=== PATIENT | female | born 1995 | race Caucasian/White ===

== ENCOUNTER 2018-01-10 15:41 | Emergency (ER) | payer OTHER ==
[~2018-01-10] VITALS: Ht 165.1 cm; Wt 45.0 kg
[~2018-01-10 15:41] MED LIST: AMOXICILLIN500 MG PO; AMOXICILLIN875 MG PO; AUGMENTIN XR PO; AUGMENTIN875TAB PO; BACTRIM1 TAB OR; BICILLIN L1.2 MU/SYR IM; CIPROFLOXACN500 MG PO; CLARITIN10 M1 PO; CLARITIN10 M2 OR; DOXY-CAPS100 MG PO; DOXYCYCL HYC100 MG PO; HYDROCO/APAP1 TA9 OR; IBUPROFEN PO; IBUPROFEN200 M1 OR; IMPLANON; LIDODERM5 % TOP; LORTAB 10 PO; LORTAB 7.57.5 MG PO; LORTAB5 PO; LUPRON2 WEE1; MEDROXYPR AC10 M1 OR; MIRALAX3350 N1 PO; MOTRIN600 MG/TAB PO; MULTIVITAMIN OR; NEXPLANON68 MG SC; NO MEDS; OXYCO/APAP1 TA5; PERCOCET 5/325M1 TAB PO; PHENERGAN25 MG RE; PHENERGAN25 MG/TAB PO; PRENATAL DHA200 MG PO; PRENATAL PO; PRENATAL1 TA1 PO; PROGESTERONE100 MG OR; SPRINTEC 2828 DAY PO; STOOL SOFTEN1 TAB OR; TRAMADOL HCL50 MG; TRIMOX500 MG PO; TUBERSOL5 MG/0.1 M ID; ULTRAM50 M1 PO; ZOFRAN ODT4 MG OR; ZOFRAN ODT4 MG PO; ZOFRAN ODT8 MG PO; ZOFRAN ODT8 MG SL; ZOFRAN4 MG/TAB PO; ZOLOFT50 MG PO; [UNRECOGNIZED DRUG - CODE] OR
[2018-01-10 16:18] LABS: INFLUENZA A NONE DETECTED (NONE DETECT); INFLUENZA B NONE DETECTED (NONE DETECT)
[2018-01-10] MEDS ORDERED: AMOXICILLIN500 M2 PO (17:24)
[2018-01-10 17:25] VITALS: BP 114/77
== END 2018-01-10 17:25 | disposition home or self-care (01) | DRG 153 ==
LOC: ED 15:41
PROVIDERS: Family Medicine
DX: J02.9 Acute pharyngitis, unspecified (principal); R05 Cough; R09.89 Other specified symptoms and signs involving the circulatory and respiratory systems; R50.9 Fever, unspecified; R11.2 Nausea with vomiting, unspecified

== ENCOUNTER 2020-12-01 11:21 | Emergency (ER) | payer OTHER ==
[~2020-12-01] VITALS: Ht 165.1 cm; Wt 54.0 kg
[~2020-12-01 11:21] MED LIST changes: +AMOXICILLIN500 M2 PO
[2020-12-01] MEDS ORDERED: CALNA PO (12:06)
[2020-12-01 12:23] LABS: HEMATOCRIT 36.5 % (37.0-47.0); HEMOGLOBIN 11.8 g/dl (12.0-16.0); IMMATURE GRANULOCYTES 0.3 % (0.0-5.0); MEAN CELL VOLUME 86.5 fL CALC (80.0-100.0); MEAN CORPUSCULAR HGB CONC 32.3 g/dL CAL (32.0-36.0); NEUT# 6.75 thou/uL (2.00-7.15); RED BLOOD COUNT 4.22 mill/uL (4.20-5.60)
[2020-12-01 12:37] LABS: ALBUMIN 3.9 g/dL (3.2-5.0); ALKALINE PHOSPHATASE 46 u/l (38-126); ANION GAP 12 (6-22 (CALC)); BILIRUBIN, TOTAL 0.5 mg/dL (0.0-1.4); BUN 8 mg/dL (7-17); BUN/CREATININE RATIO 18 (12-20 (CALC)); CARBON DIOXIDE 23 mmol/l (22-30); CHLORIDE 102 mmol/l (95-108); CREATININE 0.5 mg/dL (0.5-1.0); GFR > 60 ML/MIN (>=60 (CALC)); GFR FOR AFR.AMER. > 60 ML/MIN (>=60 (CALC)); POTASSIUM 4.1 mmol/l (3.5-5.1); SGOT/AST 15 u/l (14-36); SODIUM 133 mmol/l (137-146); TOTAL PROTEIN 6.5 g/dL (6.3-8.2)
[2020-12-01 13:05] LABS: URINE BILIRUBIN - DIPSTICK NEGATIVE (NEGATIVE); URINE BLOOD DIPSTICK NEGATIVE (NEGATIVE); URINE COLOR YELLOW; URINE GLUCOSE - DIPSTICK NEGATIVE (NEGATIVE); URINE KETONE 40 mg/dL (NEGATIVE); URINE LEUK ESTERASE NEGATIVE (NEGATIVE); URINE NITRITE - DIPSTICK NEGATIVE (Negative); URINE PH 6.5 (4.5-8.0); URINE PROTEIN - DIPSTICK NEGATIVE (NEG-TRACE); URINE SPECIFIC GRAVITY 1.025; URINE UROBILINOGEN - DIPSTICK 0.2 E.U./dL (0.2)
[2020-12-01 13:22] LABS: BETA-HCG, QUANT(RESULT NUMBER) 112230 mIU/mL
[2020-12-01] MEDS ORDERED: PHENERGAN25 MG/TAB PO (13:45)
[2020-12-01 14:14] VITALS: BP 106/69
== END 2020-12-01 14:21 | disposition home or self-care (01) ==
LOC: ED 11:21
PROVIDERS: Family Medicine
DX: R55 Syncope and collapse (principal); S06.0X9A Concussion with loss of consciousness of unspecified duration, initial encounter; W18.30XA Fall on same level, unspecified, initial encounter; Y92.89 Other specified places as the place of occurrence of the external cause

== ENCOUNTER 2021-07-15 14:25 | Emergency (ER) | payer OTHER ==
[~2021-07-15] VITALS: Ht 165.1 cm; Wt 65.0 kg
[~2021-07-15 14:25] MED LIST changes: +CALNA PO
[2021-07-15 16:44] LABS: HEMATOCRIT 36.7 % (37.0-47.0); HEMOGLOBIN 11.8 g/dl (12.0-16.0); IMMATURE GRANULOCYTES 0.1 % (0.0-5.0); MEAN CORPUSCULAR HGB 28.9 pG CALC (26.0-32.0); MEAN CORPUSCULAR HGB CONC 32.2 g/dL CAL (32.0-36.0); NEUT# 4.5 thou/uL (2.00-7.15); RED BLOOD COUNT 4.08 mill/uL (4.20-5.60); RED CELL DISTRI WIDTH 13.5 % (11.5-15.5)
[2021-07-15 16:45] LABS: URINE BILIRUBIN - DIPSTICK NEGATIVE (NEGATIVE); URINE BLOOD DIPSTICK LARGE (NEGATIVE); URINE COLOR YELLOW; URINE GLUCOSE - DIPSTICK NEGATIVE (NEGATIVE); URINE KETONE NEGATIVE (NEGATIVE); URINE LEUK ESTERASE NEGATIVE (NEGATIVE); URINE PROTEIN - DIPSTICK NEGATIVE (NEG-TRACE); URINE UROBILINOGEN - DIPSTICK 0.2 E.U./dL (0.2)
[2021-07-15 16:47] LABS: URINE NITRITE - DIPSTICK NEGATIVE (Negative)
[2021-07-15 16:57] LABS: ALBUMIN 3.7 g/dL (3.2-5.0); ALKALINE PHOSPHATASE 91 u/l (38-126); ANION GAP 10 (6-22 (CALC)); BILIRUBIN, TOTAL 0.3 mg/dL (0.0-1.4); BUN 9 mg/dL (7-17); BUN/CREATININE RATIO 15 (12-20 (CALC)); CARBON DIOXIDE 26 mmol/l (22-30); CHLORIDE 105 mmol/l (95-108); CREATININE 0.6 mg/dL (0.5-1.0); GFR > 60 ML/MIN (>=60 (CALC)); GFR FOR AFR.AMER. > 60 ML/MIN (>=60 (CALC)); POTASSIUM 3.7 mmol/l (3.5-5.1); SGOT/AST 26 u/l (14-36); SODIUM 137 mmol/l (137-146); TOTAL PROTEIN 6.7 g/dL (6.3-8.2)
[2021-07-15 18:05] VITALS: BP 129/74
== END 2021-07-15 18:05 | disposition home or self-care (01) ==
LOC: ED 14:25
PROVIDERS: Family Medicine
DX: R51.9 Headache, unspecified (principal); Z20.822 Contact with and (suspected) exposure to COVID-19

== ENCOUNTER 2021-07-21 11:57 | Emergency (ER) | payer OTHER ==
[~2021-07-21] VITALS: Ht 165.1 cm; Wt 60.0 kg
[2021-07-21 15:07] LABS: HEMATOCRIT 37.7 % (37.0-47.0); IMMATURE GRANULOCYTES 0.2 % (0.0-5.0); MEAN CELL VOLUME 90.4 fL CALC (80.0-100.0); MEAN CORPUSCULAR HGB 28.8 pG CALC (26.0-32.0); MEAN CORPUSCULAR HGB CONC 31.8 g/dL CAL (32.0-36.0); NEUT# 6.36 thou/uL (2.00-7.15); RED BLOOD COUNT 4.17 mill/uL (4.20-5.60); RED CELL DISTRI WIDTH 13.5 % (11.5-15.5)
[2021-07-21 15:17] LABS: ALKALINE PHOSPHATASE 95 u/l (38-126); ANION GAP 11 (6-22 (CALC)); BILIRUBIN, TOTAL 0.2 mg/dL (0.0-1.4); BUN 12 mg/dL (7-17); BUN/CREATININE RATIO 18 (12-20 (CALC)); CARBON DIOXIDE 23 mmol/l (22-30); CHLORIDE 107 mmol/l (95-108); CREATININE 0.6 mg/dL (0.5-1.0); GFR > 60 ML/MIN (>=60 (CALC)); GFR FOR AFR.AMER. > 60 ML/MIN (>=60 (CALC)); LIPASE 27 u/l (23-300); SGOT/AST 25 u/l (14-36); SODIUM 137 mmol/l (137-146)
[2021-07-21 16:27] VITALS: BP 127/70
== END 2021-07-21 16:35 | disposition home or self-care (01) ==
LOC: ED 11:57
PROVIDERS: Family Medicine
DX: R51.9 Headache, unspecified (principal)

== ENCOUNTER 2021-07-30 19:06 | Emergency (ER) | payer OTHER ==
[~2021-07-30] VITALS: Ht 165.1 cm; Wt 62.0 kg
[2021-07-30] MEDS ORDERED: BP MED PO (19:33)
[2021-07-30 21:22] LABS: HEMATOCRIT 36.2 % (37.0-47.0); HEMOGLOBIN 11.6 g/dl (12.0-16.0); IMMATURE GRANULOCYTES 0.2 % (0.0-5.0); MEAN CELL VOLUME 90.5 fL CALC (80.0-100.0); NEUT# 1.59 thou/uL (2.00-7.15); RED CELL DISTRI WIDTH 13.1 % (11.5-15.5)
[2021-07-30 21:38] LABS: ALKALINE PHOSPHATASE 91 u/l (38-126); ANION GAP 9 (6-22 (CALC)); BILIRUBIN, TOTAL 0.4 mg/dL (0.0-1.4); BUN 11 mg/dL (7-17); BUN/CREATININE RATIO 18 (12-20 (CALC)); CARBON DIOXIDE 26 mmol/l (22-30); CHLORIDE 105 mmol/l (95-108); CREATININE 0.6 mg/dL (0.5-1.0); GFR > 60 ML/MIN (>=60 (CALC)); GFR FOR AFR.AMER. > 60 ML/MIN (>=60 (CALC)); POTASSIUM 4.1 mmol/l (3.5-5.1); SGOT/AST 26 u/l (14-36); SODIUM 136 mmol/l (137-146); TOTAL PROTEIN 6.9 g/dL (6.3-8.2)
[2021-07-30 23:26] LABS: URINE BILIRUBIN - DIPSTICK NEGATIVE (NEGATIVE); URINE BLOOD DIPSTICK TRACE-INTACT (NEGATIVE); URINE COLOR YELLOW; URINE GLUCOSE - DIPSTICK NEGATIVE (NEGATIVE); URINE KETONE NEGATIVE (NEGATIVE); URINE LEUK ESTERASE NEGATIVE (NEGATIVE); URINE PROTEIN - DIPSTICK NEGATIVE (NEG-TRACE); URINE SPECIFIC GRAVITY <=1.005; URINE UROBILINOGEN - DIPSTICK 0.2 E.U./dL (0.2)
[2021-07-30 23:27] LABS: URINE NITRITE - DIPSTICK NEGATIVE (Negative)
[2021-07-30] MEDS ORDERED: TORADOL PO (23:36)
[2021-07-30] MEDS ORDERED: LABETALOL HYDR100 MG PO (23:36)
[2021-07-30 23:40] VITALS: BP 147/83
== END 2021-07-30 23:50 | disposition home or self-care (01) ==
LOC: ED 19:06
PROVIDERS: Family Medicine
DX: O16.5 Unspecified maternal hypertension, complicating the puerperium (principal)
CPT/HCPCS: J3475

== ENCOUNTER 2021-08-03 09:55 | Emergency (ER) | payer OTHER ==
[~2021-08-03] VITALS: Ht 165.1 cm; Wt 62.0 kg
[~2021-08-03 09:55] MED LIST changes: +BP MED PO; +LABETALOL HYDR100 MG PO; +TORADOL PO
[2021-08-03 11:03] LABS: HEMATOCRIT 39.3 % (37.0-47.0); HEMOGLOBIN 12.6 g/dl (12.0-16.0); MEAN CELL VOLUME 90.1 fL CALC (80.0-100.0); MEAN CORPUSCULAR HGB 28.9 pG CALC (26.0-32.0); MEAN CORPUSCULAR HGB CONC 32.1 g/dL CAL (32.0-36.0); NEUT# 2.67 thou/uL (2.00-7.15); RED BLOOD COUNT 4.36 mill/uL (4.20-5.60); RED CELL DISTRI WIDTH 13.1 % (11.5-15.5)
[2021-08-03 11:07] LABS: URINE BILIRUBIN - DIPSTICK NEGATIVE (NEGATIVE); URINE BLOOD DIPSTICK SMALL (NEGATIVE); URINE COLOR YELLOW; URINE GLUCOSE - DIPSTICK NEGATIVE (NEGATIVE); URINE KETONE NEGATIVE (NEGATIVE); URINE LEUK ESTERASE NEGATIVE (NEGATIVE); URINE NITRITE - DIPSTICK NEGATIVE (Negative); URINE PROTEIN - DIPSTICK NEGATIVE (NEG-TRACE); URINE SPECIFIC GRAVITY 1.015; URINE UROBILINOGEN - DIPSTICK 0.2 E.U./dL (0.2)
[2021-08-03 11:15] LABS: URINE RBC 0-2 RBC/hpf (0-5); URINE SQUAMOUS EPITHELIAL CELL FEW EPI/hpf (0-FEW)
[2021-08-03 11:16] LABS: ALBUMIN 4.6 g/dL (3.2-5.0); ALKALINE PHOSPHATASE 106 u/l (38-126); ANION GAP 10 (6-22 (CALC)); BILIRUBIN, TOTAL 0.4 mg/dL (0.0-1.4); BUN 13 mg/dL (7-17); BUN/CREATININE RATIO 23 (12-20 (CALC)); CARBON DIOXIDE 25 mmol/l (22-30); CHLORIDE 107 mmol/l (95-108); CREATININE 0.6 mg/dL (0.5-1.0); GFR > 60 ML/MIN (>=60 (CALC)); GFR FOR AFR.AMER. > 60 ML/MIN (>=60 (CALC)); POTASSIUM 4.1 mmol/l (3.5-5.1); SGOT/AST 26 u/l (14-36); SODIUM 138 mmol/l (137-146); TOTAL PROTEIN 7.8 g/dL (6.3-8.2)
[2021-08-03 14:24] VITALS: BP 129/83
== END 2021-08-03 14:18 | disposition short-term general hospital (02) ==
LOC: ED 09:55
PROVIDERS: Emergency Medicine
DX: R51.9 Headache, unspecified (principal)
CPT/HCPCS: J3475; Q9967

== ENCOUNTER 2021-08-31 15:46 | Emergency (ER) | payer OTHER ==
[~2021-08-31] VITALS: Ht 165.1 cm; Wt 59.0 kg
[2021-08-31] MEDS ORDERED: RIZATRIPTAN BEN10 M1 PO (16:01)
[2021-08-31] MEDS ORDERED: FLEXERIL5 M1 PO (17:00)
[2021-08-31 17:10] VITALS: BP 138/90
== END 2021-08-31 17:10 | disposition home or self-care (01) ==
LOC: ED 15:46
DX: R51.9 Headache, unspecified (principal)

== ENCOUNTER 2021-11-11 12:41 | Emergency (ER) | payer OTHER ==
[~2021-11-11] VITALS: Ht 165.1 cm; Wt 55.0 kg
[~2021-11-11 12:41] MED LIST changes: +FLEXERIL5 M1 PO; +GABAPENTIN400 M2 PO; +NEURONTIN300 MG PO; +RIZATRIPTAN BEN10 M1 PO
[2021-11-11] MEDS ORDERED: HYDROCO/APAP1 T10 PO (15:47)
[2021-11-11 16:22] VITALS: BP 129/75
== END 2021-11-11 16:30 | disposition home or self-care (01) ==
LOC: ED 12:41
DX: G50.0 Trigeminal neuralgia (principal)

== ENCOUNTER 2021-12-21 07:06 | Day surgery (SDC) | payer OTHER ==
[~2021-12-21] VITALS: Ht 165.1 cm; Wt 54.4 kg
[~2021-12-21 07:06] MED LIST changes: +HYDROCO/APAP1 T10 PO
[2021-12-21] MEDS ORDERED: LYRICA25 MG PO (07:21)
[2021-12-21 09:10] VITALS: BP 103/63
== END 2021-12-21 10:04 | disposition home or self-care (01) ==
LOC: ORM 07:06
DX: M54.81 Occipital neuralgia (principal); G89.4 Chronic pain syndrome
CPT/HCPCS: J1100; Q9967

== ENCOUNTER 2022-01-07 16:41 | Emergency (ER) | payer OTHER ==
[~2022-01-07] VITALS: Ht 165.1 cm; Wt 51.0 kg
[~2022-01-07 16:41] MED LIST changes: +LYRICA25 MG PO
[2022-01-07 17:06] VITALS: BP 124/84
[2022-01-07 17:30] VITALS: BP 120/76
[2022-01-07] MEDS ORDERED: TOPIRAMATE25 MG PO (17:33)
[2022-01-07 18:00] VITALS: BP 111/69
[2022-01-07 18:30] VITALS: BP 125/68
== END 2022-01-07 18:30 | disposition home or self-care (01) ==
LOC: ED 16:41
DX: G50.0 Trigeminal neuralgia (principal)

== ENCOUNTER 2022-07-04 13:53 | Observation (INO) | payer OTHER ==
[2022-07-04] VITALS (13 sets, daily range): BP systolic 106–130; BP diastolic 73–92
[~2022-07-04] VITALS: Ht 165.1 cm; Wt 59.1 kg
[~2022-07-04 13:53] MED LIST changes: +TOPIRAMATE25 MG PO
[2022-07-04 14:23] LABS: HEMATOCRIT 36.2 % (37.0-47.0); IMMATURE GRANULOCYTES 0.1 % (0.0-5.0); MEAN CORPUSCULAR HGB 27.9 pG CALC (26.0-32.0); MEAN CORPUSCULAR HGB CONC 33.1 g/dL CAL (32.0-36.0); NEUT# 7.72 thou/uL (2.00-7.15); RED BLOOD COUNT 4.3 mill/uL (4.20-5.60); RED CELL DISTRI WIDTH 13.2 % (11.5-15.5)
[2022-07-04 14:26] LABS: MEAN CELL VOLUME 84.2 fL CALC (80.0-100.0)
[2022-07-04 14:37] LABS: INTERNATIONAL NORMALIZED RATIO 1.1 RATIO (0.7-1.3); PROTHROMBIN TIME 10.9 SECONDS (9.0-12.5)
[2022-07-04 14:38] LABS: ALBUMIN 4.5 g/dL (3.2-5.0); ALKALINE PHOSPHATASE 54 u/l (38-126); ANION GAP 15 (6-22 (CALC)); BILIRUBIN, TOTAL 0.4 mg/dL (0.0-1.4); BUN 13 mg/dL (7-17); BUN/CREATININE RATIO 19 (12-20 (CALC)); CARBON DIOXIDE 21 mmol/l (22-30); CHLORIDE 110 mmol/l (95-108); CREATININE 0.7 mg/dL (0.5-1.0); GFR FOR AFR.AMER. > 60 ML/MIN (>=60 (CALC)); GFR OTHER RACES > 60 ML/MIN (>=60 (CALC)); POTASSIUM 4.1 mmol/l (3.5-5.1); SGOT/AST 17 u/l (14-36); SODIUM 142 mmol/l (137-146); TOTAL PROTEIN 7.1 g/dL (6.3-8.2)
[2022-07-04] MEDS ORDERED: LYRICA50 MG PO (15:50)
[2022-07-04] MEDS ORDERED: MEDROL DOSEPAK4 MG (15:51)
[2022-07-04 19:18] LABS: URINE BILIRUBIN - DIPSTICK NEGATIVE (NEGATIVE); URINE BLOOD DIPSTICK NEGATIVE (NEGATIVE); URINE COLOR YELLOW; URINE GLUCOSE - DIPSTICK NEGATIVE (NEGATIVE); URINE KETONE NEGATIVE (NEGATIVE); URINE LEUK ESTERASE NEGATIVE (NEGATIVE); URINE PH 7.5 (4.5-8.0); URINE PROTEIN - DIPSTICK NEGATIVE (NEG-TRACE); URINE UROBILINOGEN - DIPSTICK 0.2 E.U./dL (0.2)
[2022-07-04 19:21] LABS: URINE NITRITE - DIPSTICK NEGATIVE (Negative)
[2022-07-05] VITALS (80 sets, daily range): BP systolic 87–138; BP diastolic 57–99
[2022-07-05] MEDS ORDERED: LYRICA150 MG PO ×2 (20:12→20:26)
== END 2022-07-05 21:45 | disposition home or self-care (01) ==
LOC: ED 13:53 → ED-I 16:10 → ED 16:39 → ICU 16:40
PROVIDERS: Family Medicine; ADMIT Internal Medicine; ATTEND Internal Medicine
DX: M54.81 Occipital neuralgia (principal); G50.0 Trigeminal neuralgia; Z20.822 Contact with and (suspected) exposure to COVID-19
CPT/HCPCS: A9579; Q3014; Q9967

== ENCOUNTER 2022-07-20 19:30 | Emergency (ER) | payer OTHER ==
[2022-07-20] VITALS (9 sets, daily range): BP systolic 106–142; BP diastolic 75–101
[~2022-07-20] VITALS: Ht 165.1 cm; Wt 53.3 kg
[~2022-07-20 19:30] MED LIST changes: +LYRICA150 MG PO; +LYRICA50 MG PO; +MEDROL DOSEPAK4 MG
[2022-07-20 20:26] LABS: HEMATOCRIT 36.6 % (37.0-47.0); HEMOGLOBIN 12.2 g/dl (12.0-16.0); IMMATURE GRANULOCYTES 0.1 % (0.0-5.0); MEAN CELL VOLUME 85.7 fL CALC (80.0-100.0); MEAN CORPUSCULAR HGB 28.6 pG CALC (26.0-32.0); MEAN CORPUSCULAR HGB CONC 33.3 g/dL CAL (32.0-36.0); NEUT# 5.05 thou/uL (2.00-7.15); RED BLOOD COUNT 4.27 mill/uL (4.20-5.60); RED CELL DISTRI WIDTH 13.2 % (11.5-15.5)
[2022-07-20 20:36] LABS: ALBUMIN 4.6 g/dL (3.2-5.0); ALKALINE PHOSPHATASE 54 u/l (38-126); ANION GAP 14 (6-22 (CALC)); BILIRUBIN, TOTAL 0.3 mg/dL (0.0-1.4); BUN 16 mg/dL (7-17); BUN/CREATININE RATIO 23 (12-20 (CALC)); CARBON DIOXIDE 22 mmol/l (22-30); CHLORIDE 105 mmol/l (95-108); CREATININE 0.7 mg/dL (0.5-1.0); GFR FOR AFR.AMER. > 60 ML/MIN (>=60 (CALC)); GFR OTHER RACES > 60 ML/MIN (>=60 (CALC)); SGOT/AST 20 u/l (14-36); SODIUM 138 mmol/l (137-146); TOTAL PROTEIN 6.9 g/dL (6.3-8.2)
== END 2022-07-20 21:37 | disposition home or self-care (01) ==
LOC: ED 19:30
PROVIDERS: Emergency Medicine
DX: G50.0 Trigeminal neuralgia (principal)

== ENCOUNTER 2022-07-27 01:40 | Emergency (ER) | payer OTHER ==
[~2022-07-27] VITALS: Ht 165.1 cm; Wt 53.0 kg
[2022-07-27 01:50] VITALS: BP 134/91
[2022-07-27 02:01] VITALS: BP 118/83
[2022-07-27 02:15] VITALS: BP 135/89
[2022-07-27 02:31] VITALS: BP 142/75
[2022-07-27] MEDS ORDERED: LYRICA150 M1 PO (03:02)
[2022-07-27 04:15] VITALS: BP 142/75
== END 2022-07-27 04:25 | disposition home or self-care (01) ==
LOC: ED 01:40
DX: G50.0 Trigeminal neuralgia (principal); M54.81 Occipital neuralgia

== ENCOUNTER 2023-04-09 14:47 | Emergency (ER) | payer SELFPAY ==
[~2023-04-09] VITALS: Ht 165.1 cm; Wt 61.2 kg
[~2023-04-09 14:47] MED LIST changes: +LYRICA150 M1 PO
[2023-04-09] MEDS ORDERED: BACTROBAN TOP (17:11)
[2023-04-09] MEDS ORDERED: KEFLEX500 MG PO (17:11)
[2023-04-09 17:15] VITALS: BP 113/58
== END 2023-04-09 17:24 | disposition home or self-care (01) | DRG 605 ==
LOC: ED 14:47
PROC: 0HDRXZZ Extraction of Toe Nail, External Approach (ICD-10-PCS; principal; 2023-04-09)
DX: S90.111A Contusion of right great toe without damage to nail, initial encounter (principal); W22.03XA Walked into furniture, initial encounter; Y92.009 Unspecified place in unspecified non-institutional (private) residence as the place of occurrence of the external cause